=== PATIENT | female | born 1970 | race Two or more races ===

== ENCOUNTER 2020-07-21 18:23 | Emergency (ER) | payer SELFPAY ==
[~2020-07-21] VITALS: Ht 165.1 cm; Wt 88.0 kg
--- NOTE | 2020-07-21 18:34 | NUR ---
PT HAS CO SYNCOPE W INCONTINENCE AT WORK. PT BIB EMS. PT DENIES CP OR RESP SYMPTOMS. SLIGHT DIZZINES AND CONFUSION TO WHAT HAPPENED. A&OX4. WIND TURBINE ERECTOR APPLIED
[2020-07-21 18:45] LABS: BASOPHILS % (AUTO) 1 % (0-1); EOSINOPHILS % (AUTO) 7 % (1-7); LYMPHOCYTES % (AUTO) 23 % (22-44); MEAN CORPUSCULAR HEMOGLOBIN 19.2 pg (27.0-34.8); MEAN CORPUSCULAR HGB CONC 30.6 g/dL (32.4-35.8); MEAN PLATELET VOLUME 6.7 fL (7.4-10.4); MONOCYTES % (AUTO) 5 % (2-9); NEUTROPHILS % (AUTO) 64 % (42-75); PLATELET COUNT 419 x10^3/uL (130-400); RED BLOOD COUNT 5.18 x10^6/uL (3.82-5.3); RED CELL DISTRIBUTION WIDTH 18.5 % (9.6-15.2)
[2020-07-21 18:46] LABS: MD MORPH REVIEW ONLY
[2020-07-21 18:55] LABS: ANION GAP 9 mmol/L (5-15); CALCIUM 9.2 mg/dL (8.5-10.1); CHLORIDE 105 mmol/L (98-107); CREATININE 1.95 mg/dL (0.55-1.02)
--- NOTE | 2020-07-21 18:56 | NUR ---
REPORT FROM NORMA ZAMAN
[2020-07-21 19:03] LABS: ANISOCYTOSIS 1+; MICROCYTOSIS 2+
[2020-07-21 19:04] LABS: HYPOCHROMIA 1+; OVALOCYTES 1+
[2020-07-21 19:05] LABS: <PLATELET ESTIMATE> INCREASED; <PLT MORPHOLOGY> NORMAL PLT MORPH; POLYCHROMASIA 1+
[2020-07-21 19:20] VITALS: BP 123/78
--- NOTE | 2020-07-21 19:48 | NUR ---
PT PASSED ROAD TEST WITH NO COMPLAINTS. DC
== END 2020-07-21 20:17 | disposition home or self-care (01) ==
LOC: ED 19:00
DX: R55 Syncope and collapse (principal); R42 Dizziness and giddiness; R11.0 Nausea; R94.31 Abnormal electrocardiogram [ECG] [EKG]; I25.2 Old myocardial infarction
CPT/HCPCS: 36415; 80048; 82040; 84703; 85025; 93005; 99284